=== PATIENT | male | born 2000 | race Caucasian/White ===

== ENCOUNTER 2020-06-04 14:07 | Outpatient (CLI) | payer OTHER | END 2020-06-04 14:08 | disposition home or self-care (01) | LOC: BICRAD 14:07 | PROVIDERS: ATTEND Family Medicine | DX: M54.5 Low back pain (principal) | CPT/HCPCS: 72100 ==

== ENCOUNTER 2021-07-14 09:06 | Outpatient (CLI) | payer BC ==
[2021-07-14 10:15] LABS: Hemoglobin 15.9 g/dL (13.5-17.5); Mean Corpuscular HGB CONC 33.6 g/dL (32.0-36.0); Mean Corpuscular Hemoglobin 30.4 pg (27.0-33.0); Mean Corpuscular Volume 90.4 fl (81.2-95.1); Mean Platelet Volume 10.3 fl (7.4-10.4); Platelet Count 281 10x3/uL (150-450); RBC Distribution Width 11.8 % (11.5-14.5); Red Blood Cell (RBC) Count 5.23 10x6/uL (4.32-5.72); White Blood Cell (WBC) Count 5.1 10x3/uL (3.5-10.5)
[2021-07-14 10:24] LABS: PTT 26.7 sec (22.0-33.0); Prothrombin Time 11.2 sec (9.5-12.1)
[2021-07-14 10:34] LABS: Anion Gap 15 mmol/L (10-20); BUN (Urea Nitrogen) 13 mg/dL (8.9-20.6); Calc. Creatinine Clearance 0 mL/min (70-130); Carbon Dioxide 31 mmol/L (22-29); Chloride 100 mmol/L (98-107); Glucose 70 mg/dL (70-105); Potassium 4.7 mmol/L (3.5-5.1); Sodium 141 mmol/L (136-145)
[2021-07-14 16:46] LABS: SARS-CoV-2 PCR by NAA Not Detected (NotDetected)
== END 2021-07-14 09:07 | disposition home or self-care (01) ==
LOC: LABBT 09:06
PROVIDERS: ATTEND Surgery
DX: Z01.818 Encounter for other preprocedural examination (principal); M51.16 Intervertebral disc disorders with radiculopathy, lumbar region; Z20.822 Contact with and (suspected) exposure to COVID-19
CPT/HCPCS: 80048; 85027; 85610; 85730; 93005; 93010; U0003; U0005

== ENCOUNTER 2021-07-16 05:41 | Day surgery (SDC) | payer BC ==
[2021-07-14 14:22] VITALS: BMI 20.1
[2021-07-16] MEDS ORDERED: fentaNYL Citrate/PF 100 MCG/2 ML SYRINGE ONE (06:09)
[2021-07-16] MEDS ORDERED: HYDROmorphone 0.5 MG/0.5 ML SYRINGE ONE ×2 (06:10→09:14)
[2021-07-16] MEDS ORDERED: Thrombin 5000 UNITS/5 ML VIAL ONE (06:35)
[2021-07-16] MEDS ORDERED: Midazolam HCl 2 mg/2 ml Vial ONE (06:57)
[2021-07-16] MEDS ORDERED: Sodium Chloride 0.9% 100 ML ONE ×2 (07:18→15:01)
[2021-07-16] MEDS ORDERED: CEFAZOLIN 2 GM VIAL ONE ×2 (07:18→15:01)
[2021-07-16] MEDS ORDERED: Phenylephrine 10 MG/ML VIAL ONE (08:22)
[2021-07-16] MEDS ORDERED: SUGAMMADEX SODIUM 200 MG/2 ML VIAL ONE (09:07)
[2021-07-16] MEDS ORDERED: Fentanyl 100 MCG/2 ML VIAL ONE ×2 (09:40→09:49)
[2021-07-16] MEDS ORDERED: tiZANidine HCl 4 MG TAB ONE (09:58)
[2021-07-16] MEDS ORDERED: Ketorolac Tromethamine 30 MG/ML VIAL ONE (10:17)
[2021-07-16] MEDS ORDERED: traMADol HCl 50 MG TAB ONE ×2 (10:56→16:30)
== END 2021-07-16 16:45 | disposition home or self-care (01) ==
LOC: SDC 05:41
PROVIDERS: ATTEND Surgery
PROC: 0SB20ZZ Excision of Lumbar Vertebral Disc, Open Approach (ICD-10-PCS; principal; 2021-07-16)
DX: M51.16 Intervertebral disc disorders with radiculopathy, lumbar region (principal); Z79.899 Other long term (current) drug therapy
CPT/HCPCS: 76000; J1170; J1885; J2250; J2370; J3010; J3370; J3490

== ENCOUNTER 2024-09-19 09:49 | Outpatient (CLI) | payer BC | END 2024-09-19 09:50 | disposition home or self-care (01) | LOC: SCSMRI 09:49 | PROVIDERS: ATTEND Orthopaedic Surgery | DX: S93.04XA Dislocation of right ankle joint, initial encounter (principal); R60.0 Localized edema ==